=== PATIENT | female | born 1995 | race Caucasian/White ===

== ENCOUNTER 2018-06-13 10:43 | Emergency (ER) | payer BC ==
[2018-06-13] MEDS ORDERED: NS 1,000 ML IV ONE (11:17)
--- NOTE | 2018-06-13 11:20 | EDPHY ---
H & P Time Seen by Provider: 06/13/18 11:08 HPI/ROS: CHIEF COMPLAINT: Abdominal pain HISTORY OF PRESENT ILLNESS: Patient has diabetes, started having abdominal discomfort last night. She says she "did not feel good" and was worse when she woke up today. It was worse last night and today with laughing and movement and definitely worse when she sneezed. Not associated with urinary symptoms or fever or chills or vomiting. She did have episode of bleeding but she has implanted hormonal contraceptive and that is typical for her. Symptoms REVIEW OF SYSTEMS: Eye: no change in vision ENT: no sore throat Cardiac: no chest pain or syncope Pulmonary: no cough or SOB Abdomen: HPI moderate at this time. Musculoskeletal: no back pain Skin: no rash Neuro: no headache Constitutional: no fever : no urinary symptoms A comprehensive 10 point review of systems is otherwise negative aside from elements mentioned in the history of present illness. PAST MEDICAL HISTORY: Includes diabetes, hyperthyroid. Her glucose today was just under 200 on her continuous transcutaneous monitor. Social history: Nonsmoker General Appearance: Alert and conversant, cooperative. Eyes: No scleral icterus. ENT, Mouth: Dry mucous membranes. Respiratory: Normal respiratory effort, breath sounds equal, lungs are clear to auscultation. Cardiovascular: Regular rate and rhythm. Gastrointestinal: Right lower quadrant tenderness without rebound or guarding. Bowel sounds present, not distended, no hernia. Neurological: Alert, face symmetric, normal motor and sensory in extremities. Skin: Warm and dry, no rashes. Musculoskeletal: No peripheral edema. Psychiatric: Not agitated. Emergency Department course/MDM: Normal saline 1 L, ultrasound to evaluate right ovary and appendix, pain medication offered patient initially declined. 1255: Appendix is seen and normal, pelvic and renal ultrasound normal all per Dr. Parks at this time. IV ceftriaxone, will treat for the next 48 hr with cephalosporin orally, consider discontinuing if urine culture is negative. Noted to have 3+ epithelial cells as well but does have pyuria and bacteria. Results discussed, emphasize that urine findings may or may not be related to her abdominal pain. At this point however I feel like PID or appendicitis or ovarian torsion or cyst unlikely. Patient is sexually active, last 2 months ago with another woman. I think PID would be less likely. GC and Chlamydia sent on the urine. I did call the lab to inform of this added on. Smoking Status: Never smoked Constitutional: Initial Vital Signs Temperature (C) 37.3 C 06/13/18 10:50 Heart Rate 108 H 06/13/18 10:50 Respiratory Rate 16 06/13/18 10:50 Blood Pressure 130/80 H 06/13/18 10:50 O2 Sat (%) 98 06/13/18 10:50 O2 Delivery Mode Room Air Allergies/Adverse Reactions: shellfish derived Allergy (Verified 06/13/18 10:48) Home Medications: Medication Instructions Recorded INSULIN LISPRO humALOG 75/25 0 units SC BIDMEAL 12/29/15 [HumALOG MIX 75/25 SYRINGE] Cephalexin [Keflex] 500 mg PO QID #28 cap 06/13/18 FOCALIN 06/13/18 Medical Decision Making - Diagnostics Imaging Results: Imaging Impressions Abdomen Ultrasound 06/13/18 11:18 Impression: Normal-appearing appendix is visualized. No ultrasound findings for appendicitis. Results called and discussed with Vito Rivas MD on June 13, 2018 at 12: 57 p.m. Pelvic/Renal Ultrasound 06/13/18 11:18 Impression: Normal ultrasound pelvis. Results called and discussed with Dr. Vito Rivas at 06/13/2018 12:58. Abdomen/Pelvis Ultrasound 06/13/18 11:48 Impression: Normal renal ultrasound. Results called and discussed with Vito Rivas MD on June 13, 2018 at 12: 56 p.m. Imaging: Discussed imaging studies w/ call center consultant Radiologist Differential Diagnosis: Differential considered including but not limited to UTI, PID, appendicitis, ovarian torsion or cyst, ectopic. - Data Points Laboratory Results: Laboratory Results 06/13/18 11:05 06/13/18 11:05 06/13/18 06/13/18 06/13/18 11:05 11:05 11:05 WBC RBC Hgb Hct MCV MCH MCHC RDW Plt Count MPV Neut % (Auto) Lymph % (Auto) [place] % (Auto) Eos % (Auto) Baso % (Auto) Nucleat RBC Rel Count Absolute Neuts (auto) Absolute Lymphs (auto) Absolute Monos (auto) Absolute Eos (auto) Absolute Basos (auto) Absolute Nucleated RBC Immature Gran % Immature Gran # Sodium 136 mEq/L mEq/L (135-145) Potassium 4.5 mEq/L mEq/L (3.5-5.2) Chloride 104 mEq/L mEq/L (97-110) Carbon Dioxide 22 mEq/l mEq/l (22-31) Anion Gap 10 mEq/L mEq/L (6-14) BUN 17 mg/dL mg/dL (7-23) Creatinine 0.7 mg/dL mg/dL (0.6-1.0) Estimated GFR > 60 Glucose 194 mg/dL H mg/dL (70-100) Calcium 9.7 mg/dL mg/dL (8.5-10.4) Beta HCG, Qual NEGATIVE Urine Color YELLOW Urine Appearance MODERATELY TURBID Urine pH 5.0 (5.0-7.5) Ur Specific [place] 1.027 (1.002-1.030) Urine Protein NEGATIVE (NEGATIVE) Urine Ketones NEGATIVE (NEGATIVE) Urine Blood 3+ H (NEGATIVE) Urine Nitrate NEGATIVE (NEGATIVE) Urine Bilirubin NEGATIVE (NEGATIVE) Urine Urobilinogen NEGATIVE EU EU (0.2-1.0) Ur Leukocyte Esterase 3+ H (NEGATIVE) Urine RBC 5-10 /hpf H /hpf (0-3) Urine WBC 15-25 /hpf H /hpf (0-3) Ur Epithelial Cells 3+ /lpf H /lpf (NONE-1+) Urine Bacteria TRACE /hpf H /hpf (NONE SEEN) Hyaline Casts 1-5 /lpf /lpf (0-1) Urine Mucus 2+ /lpf H /lpf (NONE-1+) Urine Glucose 3+ H (NEGATIVE) 06/13/18 11:05 WBC 7.19 10^3/uL 10^3/uL (3.80-9.50) RBC 5.12 10^6/uL 10^6/uL (4.18-5.33) Hgb 16.3 g/dL g/dL (12.6-16.3) Hct 45.9 % % (38.0-47.0) MCV 89.6 fL fL (81.5-99.8) MCH 31.8 pg pg (27.9-34.1) MCHC 35.5 g/dL g/dL (32.4-36.7) RDW 12.2 % % (11.5-15.2) Plt Count 362 10^3/uL 10^3/uL (150-400) MPV 8.9 fL fL (8.7-11.7) Neut % (Auto) 48.6 % % (39.3-74.2) Lymph % (Auto) 42.0 % % (15.0-45.0) [place] % (Auto) 7.2 % % (4.5-13.0) Eos % (Auto) 1.3 % % (0.6-7.6) Baso % (Auto) 0.8 % % (0.3-1.7) Nucleat RBC Rel Count 0.0 % % (0.0-0.2) Absolute Neuts (auto) 3.49 10^3/uL 10^3/uL (1.70-6.50) Absolute Lymphs (auto) 3.02 10^3/uL H 10^3/uL (1.00-3.00) Absolute Monos (auto) 0.52 10^3/uL 10^3/uL (0.30-0.80) Absolute Eos (auto) 0.09 10^3/uL 10^3/uL (0.03-0.40) Absolute Basos (auto) 0.06 10^3/uL 10^3/uL (0.02-0.10) Absolute Nucleated RBC 0.00 10^3/uL 10^3/uL (0-0.01) Immature Gran % 0.1 % % (0.0-1.1) Immature Gran # 0.01 10^3/uL 10^3/uL (0.00-0.10) Sodium Potassium Chloride Carbon Dioxide Anion Gap BUN Creatinine Estimated GFR Glucose Calcium Beta HCG, Qual Urine Color Urine Appearance Urine pH Ur Specific [place] Urine Protein Urine Ketones Urine Blood Urine Nitrate Urine Bilirubin Urine Urobilinogen Ur Leukocyte Esterase Urine RBC Urine WBC Ur Epithelial Cells Urine Bacteria Hyaline Casts Urine Mucus Urine Glucose Medications Given: Discontinued Medications Sodium Chloride (Ns) 1,000 mls @ 0 mls/hr IV EDNOW ONE; Wide Open PRN Reason: Protocol Stop: 06/13/18 11:18 Last Admin: 06/13/18 11:21 Dose: 1,000 mls Ceftriaxone Sodium/Dextrose (Rocephin 1 Gm (Premix)) 50 mls @ 100 mls/hr IV EDNOW ONE PRN Reason: Protocol Stop: 06/13/18 13:24 Last Admin: 06/13/18 12:58 Dose: 50 mls Ibuprofen (Motrin) 600 mg PO EDNOW ONE Stop: 06/13/18 13:09 Last Admin: 06/13/18 13:20 Dose: 600 mg Departure - Departure Disposition: Home, Routine, Self-Care Clinical Impression: Urinary tract infection Qualifiers: Urinary tract infection type: site unspecified Hematuria presence: without hematuria Qualified Code(s): N39.0 - Urinary tract infection, site not specified Abdominal pain Qualifiers: Abdominal location: right lower quadrant Qualified Code(s): R10.31 - Right lower quadrant pain Condition: Good Instructions: Urinary Tract Infection in Women (ED), Acute Abdominal Pain (ED) Additional Instructions: You need to return to the emergency department immediately if you develop worsening or severe pain, fever, vomiting or you are not completely better in 8- 12 hours. Call for results of STD testing and urine culture in 48 hr, . If urine culture is negative I would consider stopping antibiotics at that time. Referrals: Ruth Brewster [Physician [employer] Gr[employer] Operator] - As per Instructions Prescriptions: Cephalexin [Keflex] 500 mg PO QID #28 cap
[2018-06-13 11:23] LABS: PLATELET COUNT 362 10^3/uL (150-400)
[2018-06-13] MEDS ORDERED: IBUPROFEN 600 MG TAB PO ONE (13:08)
[2018-06-13 13:35] VITALS: BP 118/68
== END 2018-06-13 13:36 | disposition home or self-care (01) ==
DX: N39.0 Urinary tract infection, site not specified (principal); R10.31 Right lower quadrant pain; E86.9 Volume depletion, unspecified
CPT/HCPCS: 96365; J0696